=== PATIENT | male | born 1955 | race Caucasian/White ===

== ENCOUNTER 2017-05-13 19:11 | Emergency (ER) | payer OTHER ==
[2017-05-13] MEDS ORDERED: Ondansetron 4 MG/2 ML SDV IVPUSH ONE (19:50)
--- NOTE | 2017-05-13 19:50 | EDM.PDOC ---
ED HPI GENERAL MEDICAL PROBLEM - General Chief Complaint: Neurological Problem Stated Complaint: [facility] Time Seen by Provider: 05/13/17 19:14 Source of Information: Reports: Patient History Limitations: Reports: No Limitations - History of Present Illness INITIAL COMMENTS - FREE TEXT/NARRATIVE: Is a 61-year-old male. He was at the [facility] ordering a meal this evening. He states he got a little nauseated and felt lightheaded and wanted to go back to his room so when he stood up he promptly took 2 steps and passed out. When he awoke he vomited. They were able to get him up and he was coherent and not confused he moved his arms and his legs without difficulty just felt lightheaded. The food that he vomited was the food that he at 1:30 PM today which was hashbrowns and eggs. Because of the syncopal episode that brought him here to the hospital. He denies any chest pain he denies any headache he still is slightly nauseated but doesn't feel the need to vomit at this time. He states he's never had a syncopal episode like this before. He denies any vertigo he denies any recent illnesses colds cough or sore throat. He is moving all 4 extremities equally and denies any malfunction of his extremities. His blood sugar when he arrived to the ER was 156. The patient states he's been drinking a little bit tonight and has not normally what he does. Past Medical History Cardiovascular History: Reports: High Cholesterol, Hypertension Neurological History: Reports: CVA Endocrine/Metabolic History: Reports: Diabetes, Type I, IDDM Social & Family History - Tobacco Use Smoking Status *Q: Never Smoker - Recreational Drug Use Recreational Drug Use: No ED ROS GENERAL - Review of Systems Review Of Systems: See Below Constitutional: Denies: Fever, Chills HEENT: Reports: No Symptoms Respiratory: Denies: Shortness of Breath, Cough Cardiovascular: Denies: Chest Pain Endocrine: Reports: No Symptoms GI/Abdominal: Reports: Nausea, Vomiting. Denies: Abdominal Pain, Diarrhea : Reports: No Symptoms Musculoskeletal: Reports: No Symptoms Skin: Reports: No Symptoms Neurological: Reports: Syncope. Denies: Confusion, Dizziness, Headache, Numbness, Tingling, Weakness Psychiatric: Reports: No Symptoms Hematologic/Lymphatic: Reports: No Symptoms ED EXAM, NEURO - Physical Exam Exam: See Below Exam Limited By: No Limitations General Appearance: Alert, WD/WN, No Apparent Distress, Other (Does complain of some mild nausea) Eye Exam: Bilateral Eye: Normal Inspection Ears: Normal External Exam, Normal Canal, Normal TMs Nose: Normal Inspection Throat/Mouth: Normal Inspection, Normal Lips, Normal Oropharynx, Normal Voice, No Airway Compromise Head Exam: Normocephalic Neck: Supple Respiratory/Chest: No Respiratory Distress, Lungs Clear, Normal Breath Sounds Cardiovascular: Regular Rate, Rhythm, No Murmur GI/Abdominal: Soft, Non-Tender, No Mass, Other (Obese) Neurological: Alert, Normal Mood/Affect, CN II-XII Intact, No Motor/Sensory Deficits, Oriented x 3, Other (He is able to move his upper and lower extremities with no difficulty and he seems to have symmetrical movement and strength at this time) Back Exam: Full Range of Motion Extremities: Normal Inspection, Normal Range of Motion Psychiatric: Normal Affect, Normal Mood Skin Exam: Warm, Dry EKG INTERPRETATION EKG Date: 05/13/17 Time: 19:14 EKG Interpretation Comments: EKG shows a normal sinus rhythm there are no acute ST or T-wave changes no ischemia noted. Course - Vital Signs Last Recorded V/S: Last Vital Signs Temp 96.2 F 05/13/17 19:13 Pulse 89 05/13/17 19:13 Resp 18 05/13/17 19:13 BP 125/7 L 05/13/17 19:13 Pulse Ox 91 L 05/13/17 19:13 Orthostatic Blood Pressure [ 113/73 Standing] Orthostatic Blood Pressure [ 109/65 Sitting] Orthostatic Blood Pressure [ 108/66 Supine] - Orders/Labs/Meds Orders: Active Orders 24 hr Category Date Time Status EKG 12 Lead [EKG Documentation Completion] [RC] STAT Care 05/13/17 19:24 Active Orthostatic Vital Signs [RC] ASDIRECTED Care 05/13/17 19:50 Active Chest 2V [CR] Stat Exams 05/13/17 19:24 Taken Head wo Cont [CT] Stat Exams 05/13/17 19:25 Taken Labs: Laboratory Tests 05/13/17 05/13/17 05/13/17 Range/Units 19:10 19:10 19:10 WBC 11.60 H (4.23-9.07) K/mm3 RBC 5.09 (4.63-6.08) M/mm3 Hgb 10.8 L (13.7-17.5) gm/L Hct 36.3 L (40.1-51.0) % MCV 71.3 L (79.0-92.2) fl MCH 21.2 L (25.7-32.2) pg MCHC 29.8 L (32.2-35.5) g/dl RDW Std Deviation 49.6 H (35.1-43.9) fL Plt Count 254 (163-337) K/mm3 MPV 11.5 (9.4-12.3) fl Neut % (Auto) 55.0 (34.0-67.9) % Lymph % (Auto) 28.6 (21.8-53.1) % Castro % (Auto) 12.5 H (5.3-12.2) % Eos % (Auto) 3.4 (0.8-7.0) Baso % (Auto) 0.3 (0.1-1.2) % Neut # (Auto) 6.39 H (1.78-5.38) K/mm3 Lymph # (Auto) 3.32 (1.32-3.57) K/mm3 Castro # (Auto) 1.45 H (0.30-0.82) K/mm3 Eos # (Auto) 0.39 (0.04-0.54) K/mm3 Baso # (Auto) 0.03 (0.01-0.08) K/mm3 Manual Slide Review Abnormal smear Sodium 140 (136-145) mEq/L Potassium 4.2 (3.5-5.1) mEq/L Chloride 101 (98-107) mEq/L Carbon Dioxide 24 (21-32) mEq/L Anion Gap 19.2 H (5-15) BUN 16 (7-18) mg/dL Creatinine 1.2 (0.7-1.3) mg/dL Est Cr Clr Drug Dosing 66.75 mL/min Estimated GFR (MDRD) > 60 (>60) mL/min BUN/Creatinine Ratio 13.3 L (14-18) Glucose 176 H (80-115) mg/dL POC Glucose (80-115) mg/dL Calcium 9.1 (8.5-10.1) mg/dL Total Bilirubin 0.5 (0.2-1.0) mg/dL AST 34 (15-37) U/L ALT 49 (16-63) U/L Alkaline Phosphatase 128 H (46-116) U/L Troponin I < 0.017 (0.00-0.056) ng/mL Total Protein 8.2 (6.4-8.2) g/dl Albumin 3.7 (3.4-5.0) g/dl Globulin 4.5 gm/dL Albumin/Globulin Ratio 0.8 L (1-2) Lipase 132 (73-393) U/L Ethyl Alcohol 0.00 (0.00) gm% 05/13/17 Range/Units 19:13 WBC (4.23-9.07) K/mm3 RBC (4.63-6.08) M/mm3 Hgb (13.7-17.5) gm/L Hct (40.1-51.0) % MCV (79.0-92.2) fl MCH (25.7-32.2) pg MCHC (32.2-35.5) g/dl RDW Std Deviation (35.1-43.9) fL Plt Count (163-337) K/mm3 MPV (9.4-12.3) fl Neut % (Auto) (34.0-67.9) % Lymph % (Auto) (21.8-53.1) % Castro % (Auto) (5.3-12.2) % Eos % (Auto) (0.8-7.0) Baso % (Auto) (0.1-1.2) % Neut # (Auto) (1.78-5.38) K/mm3 Lymph # (Auto) (1.32-3.57) K/mm3 Castro # (Auto) (0.30-0.82) K/mm3 Eos # (Auto) (0.04-0.54) K/mm3 Baso # (Auto) (0.01-0.08) K/mm3 Manual Slide Review Sodium (136-145) mEq/L Potassium (3.5-5.1) mEq/L Chloride (98-107) mEq/L Carbon Dioxide (21-32) mEq/L Anion Gap (5-15) BUN (7-18) mg/dL Creatinine (0.7-1.3) mg/dL Est Cr Clr Drug Dosing mL/min Estimated GFR (MDRD) (>60) mL/min BUN/Creatinine Ratio (14-18) Glucose (80-115) mg/dL POC Glucose 156 H (80-115) mg/dL Calcium (8.5-10.1) mg/dL Total Bilirubin (0.2-1.0) mg/dL AST (15-37) U/L ALT (16-63) U/L Alkaline Phosphatase (46-116) U/L Troponin I (0.00-0.056) ng/mL Total Protein (6.4-8.2) g/dl Albumin (3.4-5.0) g/dl Globulin gm/dL Albumin/Globulin Ratio (1-2) Lipase (73-393) U/L Ethyl Alcohol (0.00) gm% Meds: Medications Discontinued Medications Generic Name Dose Route Start Last Admin Trade Name Freq PRN Reason Stop Dose Admin Sodium Chloride 1,000 mls @ 999 mls/hr 05/13/17 21:30 05/13/17 21:36 Normal Saline IV 05/13/17 22:30 999 mls/hr ONETIME ONE Administration Ondansetron HCl Confirm 05/13/17 19:51 05/13/17 19:51 Zofran Administered 05/13/17 19:52 Not Given Dose 4 mg .ROUTE .STK-MED ONE Ondansetron HCl 4 mg 05/13/17 19:50 05/13/17 19:51 Zofran IVPUSH 05/13/17 19:51 4 mg ONETIME ONE Administration - Radiology Interpretation Free Text/Narrative:: CAT scan of the head does not reveal any acute intracranial hemorrhage or infarct or mass effect. Chest x-ray does not show any acute changes - Re-Assessments/Exams Free Text/Narrative Re-Assessment/Exam: 05/13/17 19:48 While the patient was in x-ray to get the chest x-ray when they stood him up he became lightheaded again developed some nausea and vomiting. He did not pass out in the x-ray room however. 05/13/17 22:33 After the liter of fluids was then the nurses got the patient up and walked him in the hallway in the ER and he felt fine and he was not dizzy he had no lightheadedness he felt good. He is noted to have a slight limp on the left side but that is due to his previous stroke and is his normal baseline. Departure - Departure Time of Disposition: 22:33 Disposition: Home, Self-Care 01 Condition: Good Clinical Impression: Orthostatic hypotension, Dehydration Nausea and vomiting Qualifiers: Vomiting type: unspecified Vomiting Intractability: non-intractable Qualified Code(s): R11.2 - Nausea with vomiting, unspecified Syncope Qualifiers: Syncope type: vasovagal syncope Qualified Code(s): R55 - Syncope and collapse Anemia Qualifiers: Anemia type: iron deficiency Iron deficiency anemia type: other iron deficiency Qualified Code(s): D50.8 - Other iron deficiency anemias - Discharge Information Instructions: Dehydration, Adult, [id number], Nausea and Vomiting, Adult, Orthostatic Hypotension Referrals: PCP,Not In Area [Primary Care Provider] - Forms: ED Department Discharge Additional Instructions: For the next 24 hours make sure to drink lots of fluids, avoid any heavy foods like vegetables and meats for the next 24 hours to let your stomach settle, make sure you follow-up with your family doctor regarding your anemia, continue with your normal medications, if you have any further syncopal episodes return to the ER immediately, otherwise follow-up with your family doctor and return to the ER as needed - My Orders Last 24 Hours: My Active Orders 05/13/17 19:24 EKG 12 Lead [EKG Documentation Completion] [RC] STAT Chest 2V [CR] Stat 05/13/17 19:25 Head wo Cont [CT] Stat 05/13/17 19:50 Orthostatic Vital Signs [RC] ASDIRECTED - Assessment/Plan Last 24 Hours: My Active Orders 05/13/17 19:24 EKG 12 Lead [EKG Documentation Completion] [RC] STAT Chest 2V [CR] Stat 05/13/17 19:25 Head wo Cont [CT] Stat 05/13/17 19:50 Orthostatic Vital Signs [RC] ASDIRECTED
[2017-05-13] MEDS ORDERED: Ondansetron 4 MG/2 ML SDV ONE (19:51)
[2017-05-13] MEDS ORDERED: Sodium Chloride 0.9% 1,000 ML IV ONE (21:30)
--- NOTE | 2017-05-15 08:01 | CT ---
Head CT Technique: Multiple axial sections through the brain were obtained. Intravenous contrast was not utilized. Comparison: No prior intracranial imaging. Findings: Ventricles along the basal cisterns and sulci over the convexities are within normal limits for the patient's age. No abnormal parenchymal densities are seen. No evidence of intracranial hemorrhage. No midline shift or mass effect is seen. Atherosclerotic calcification is seen within the vertebral vessels and within the carotid siphon. Mild mucosal thickening is seen within the posterior ethmoid sinuses. No acute calvarial abnormality is seen. Impression: 1. Sinus findings which are felt to be incidental. 2. No acute intracranial abnormality is identified. Diagnostic code #2 Agree with preliminary report issued by [employer] ([employer] preliminary report dictated on 05/13/17, 9:19 PM Central Time)
--- NOTE | 2017-05-15 08:01 | CR ---
Chest: Two views of the chest were obtained. Comparison: No prior chest x-ray. Heart size and mediastinum are normal. Lungs are clear. Bony structures are unremarkable. Impression: 1. Nothing acute is identified on two-view chest x-ray. Diagnostic code #1
== END 2017-05-13 22:47 | disposition home or self-care (01) ==
LOC: JD.ED 19:11
DX: I95.1 Orthostatic hypotension (principal); E86.0 Dehydration; D50.8 Other iron deficiency anemias; I10 Essential (primary) hypertension; E78.00 Pure hypercholesterolemia, unspecified; E10.9 Type 1 diabetes mellitus without complications
CPT/HCPCS: 36415; 70450; 71046; 80053; 82962; 83690; 84484; 85025; 93005; 96361; 96374; 99285; G0480; J2405; J7040; 93010; 99284-25